=== PATIENT | female | born 2000 | race Caucasian/White ===

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

== ENCOUNTER 2021-12-08 23:43 | Emergency (ER) | payer MEDICAID ==
[~2021-12-08] VITALS: Ht 175.3 cm; Wt 61.4 kg
[2021-12-09] MEDS ORDERED: ketamine 10mg/ml 20ml inj vial IV ONE (00:20)
[2021-12-09] MEDS ORDERED: ketamine 50 mg/ml 10ml vial IV ONE (00:25)
[2021-12-09 01:51] VITALS: BP 150/92
== END 2021-12-09 01:57 | disposition home or self-care (01) ==
LOC: ER 23:44
DX: S83.014A Lateral dislocation of right patella, initial encounter (principal); Z72.89 Other problems related to lifestyle; W19.XXXA Unspecified fall, initial encounter; Y93.41 Activity, dancing; Y92.89 Other specified places as the place of occurrence of the external cause; Y99.8 Other external cause status
CPT/HCPCS: 27560; 73564; 94760; 94799; 99152; 99285